=== PATIENT | female | born 1985 | race Caucasian/White ===

== ENCOUNTER 2021-03-20 05:01 | Inpatient (IN) | payer OTHER, SELFPAY ==
[2021-03-20] VITALS (143 sets, daily range): BP systolic 88–135; BP diastolic 46–93; PULSE 66–176; RESP 16–20; TEMP 36.3–37.7; O2SAT 87–100; BMI 30.9
--- NOTE | 2021-03-20 05:24 | LDADM ---
This patient, Gwen Gan, was admitted to Labor/Delivery/Recovery 106 on 03/20/21 at 05:01. Plans for labor, pain management and were discussed with patient. Patient/family oriented to hospital policies and general routines including ID bracelet, bed and alarms, visiting hours, pain management, procedures, bathroom and other care routines, personal items, smoking policy, room service/diet and guest tray routines, infant security routines, and visiting hours. Patient/Family are encouraged to report perceived risks to care and to ask questions if they do not understand what they are told or what they should do. See OBIX for further documentation.
[2021-03-20] MEDS: LACTATED RINGERS 1,000 ML 125 ML IV CONT (05:40)
[2021-03-20] MEDS: OXYTOCIN 30 UNITS/NS 500 ML 30 UNITS/500 ML BAG IV CONT (05:41)
[2021-03-20 05:45] LABS: Basophils Percent Auto 0.3 % (0.2-1.2); Eosinophils Absolute Auto 0.1 K/mm3 (0-0.3); Eosinophils Percent Auto 1.8 % (0-4.4); Hematocrit 34.1 % (37.0-47.0); Hemoglobin 11.6 g/dL (12.0-15.0); Immature Granulocyte Absolute 0.05 K/mm3 (0.00-0.031); Immature Granulocyte Percent A 0.6 % (0-0.5); Lymphocytes Absolute Auto 2.28 K/mm3 (0.9-3.2); Lymphocytes Percent Auto 28.7 % (18.3-44.2); Mean Corpuscular Hemoglobin 31.4 pg (26-34); Mean Corpuscular Volume 92.4 fl (80-100); Mean Platelet Volume 10.6 fl (7.4-10.4); Monocytes Absolute Auto 0.4 K/mm3 (0.1-0.6); Monocytes Percent Auto 5.3 % (2.6-8.5); Neutrophils Percent Auto 63.3 % (45.5-73.1); Platelet Count Result 343 k/mm3 (150-375); Red Blood Count 3.69 M/mm3 (4.2-5.4); Red Cell Distribution Width 12.7 % (11.5-14.5); White Blood Count 7.9 K/mm3 (4.5-10.0)
[2021-03-20 06:10] LABS: Alanine Aminotransferase 12 U/L (4-35); Albumin Level 3.7 g/dL (3.5-5.1); Alkaline Phosphatase 121 U/L (38-126); Anion Gap 8 mmol/L (8-16); Aspartate Amino Transferase 22 U/L (14-36); Bilirubin,Total 0.3 mg/dL (0.2-1.3); Blood Urea Nitrogen 11 mg/dL (7-17); Calcium 9.4 mg/dL (8.4-10.2); Carbon Dioxide 19 mmol/L (22-30); Chloride 107 mmol/L (98-107); Estimated CRCL calculation 98 ml/min; Estimated Glomerular Filt Rate > 60; Glucose 88 mg/dL (65-110); Potassium 3.8 mmol/L (3.4-5.0); Sodium 134 mmol/L (137-145)
--- NOTE | 2021-03-20 07:04 | PM.IMHP ---
H&P: HPI History of Present Illness Date/Time: 03/20/21 07:04 36-year-old 2 para 1 whose last menstrual period was 06/16/2020/ EDC is 03/31/2021, confirmed by 9 week ultrasound presents at 38 half weeks gestation for induction of labor. She had mildly elevated blood pressure with mild proteinuria and low grade headache. PIH labs were normal however cervix is favorable with good dates she is admitted for induction of labor. She is negative for group B strep Chief Complaint: gestational hypertension at 38 half weeks Review of Systems Review of Systems: All systems reviewed & are unremarkable except as noted in HPI and below PMFSH Family History Family History Grandparent Cerebrovascular accident Diabetes mellitus Social History Social History Smoking status: Former smoker Tobacco type: cigarettes Second hand tobacco smoke exposure: No Substance use: never Spiritual care concerns: No Meds Home Medications and Allergies Home Medications Medication Instructions Recorded Confirmed Type PNV cmb#95-ferrous fumarate-FA 1 tablet PO DAILY 03/05/21 03/05/21 History [] Allergies Allergy/AdvReac Type Severity Reaction Status Date / Time No Known Allergies Allergy Unverified 06/01/18 13:06 Vital Signs Vital Signs - 24 hr 03/20/21 05:31 03/20/21 05:36 03/20/21 06:01 Temperature 98.8 F Pulse Rate 95 88 Respiratory Rate 20 Blood Pressure 111/74 116/78 03/20/21 06:21 03/20/21 06:31 03/20/21 07:01 Temperature 98.8 F Pulse Rate 97 81 Respiratory Rate 20 Blood Pressure 109/70 129/84 Exam Const: General: no acute distress Eyes: General: appearance normal, both eyes and all related structures Neck: Neck: supple and no JVD Thyroid: thyroid normal Resp: Effort & Inspection: normal respiratory effort Auscultation: clear to auscultation bilaterally Cardio: Rate: regular rate Rhythm: regular rhythm GI: Inspection: non-distended GI Palp: Yes Soft to palpation, No Tenderness to palpation present (GI) and No Guarding due to palpation present (GI) Auscultation: normal bowel sounds : External Female Exam: normal external appearance Speculum Exam - Vagina: normal appearance of the vagina Speculum Exam - Cervix: Cervical os closed ( cervix 3/75/1. AROM clear. FHTs reassuring) Bimanual exam- vagina & uterus: non-tender Skin: General skin exam: no rashes or lesions noted Extrem: General: normal to inspection and no edema Psych: Mental Status: mental status grossly normal Affect: normal affect H&P: Results Labs Labs: Short CBC 03/20/21 Range/Units 05:34 WBC 7.9 (4.5-10.0) K/mm3 Hgb 11.6 L (12.0-15.0) g/dL Hct 34.1 L (37.0-47.0) % Plt Count 343 (150-375) k/mm3 BMP 03/20/21 05:34 Sodium 134 L Potassium 3.8 Chloride 107 Carbon Dioxide 19 L BUN 11 Creatinine 0.60 L Glucose 88 Calcium 9.4 Liver Function 03/20/21 Range/Units 05:34 Total Bilirubin 0.3 (0.2-1.3) mg/dL AST 22 (14-36) U/L ALT 12 (4-35) U/L Alkaline Phosphatase 121 (38-126) U/L Albumin 3.7 (3.5-5.1) g/dL Assessment and Plan Additional Plan impression: 38 half weeks with elevated blood pressures Plan: Medical induction of labor. Spontaneous vaginal delivery is expected. She has an epidural candidate
[2021-03-20] MEDS: fentaNYL CITRATE INJ (*CRX) 100 MCG/2 ML VIAL 50 MCG IV PUSH (07:07)
[2021-03-20] MEDS: ONDANSETRON INJ 4 MG/2 ML VIAL IV PUSH (09:45)
[2021-03-20 11:37] LABS: Rapid Plasma Reagin Non-Reactive (NonReactive)
--- NOTE | 2021-03-20 14:14 | PM.OBPRVD ---
OB - Delivery Note Procedure Delivery date: 03/20/21 Procedure: mil events: Labor Induction Intrapartal events: None Induction method: AROM Delivery augmentation: pitocin Delivery monitor: external FHT Route of delivery: Episiotomy description: None Laceration Description: None Specimen: No Quantitative Blood Loss (ml): 58 Anesthesia type: Epidural Disposition: floor [place] [facility] Date of : 03/20/21 Time of : 14:07 Weeks of gestation at delivery: 38 gender: Female presentation: vertex position: Right Occiput Anterior Placenta delivery description: Spontaneous cord vessel description: 3 Vessels and Clamped/Cut score one minute: 9 score five minutes: 9
[2021-03-20] MEDS: OXYTOCIN 30 UNITS/NS 500 ML 30 UNITS/500 ML BAG 125 UNITS IV CONT (14:48)
[2021-03-20] MEDS: IBUPROFEN 600 MG TABLET PO (16:50)
--- NOTE | 2021-03-20 18:09 | OBPPTRN ---
1655 Patient transferred to post room #284 via W/C. Support person present. Oriented to unit, room, information board, rooming in, admission packet and security measures. Patient verbalizes understanding.
[2021-03-20] MEDS: ACETAMINOPHEN 325 MG TABLET 650 MG PO (20:29)
[2021-03-21 04:00] VITALS: BP 117/77; PULSE 80; RESP 16; TEMP 36.6; O2SAT 100
[2021-03-21] MEDS: IBUPROFEN 600 MG TABLET PO ×2 (04:04→14:35)
[2021-03-21 05:40] LABS: Hematocrit 28.3 % (37.0-47.0); Hemoglobin 9.3 g/dL (12.0-15.0)
--- NOTE | 2021-03-21 06:54 | P.PNOB_ITS ---
OB - PN: Subj Subjective Date/time seen: 03/21/21 06:54 Patient comments: no complaints and pain well controlled baby status: doing well and nursing well OB - PN: Obj Data Labs CBC & Chem 7: 03/21/21 04:10 03/20/21 05:34 Labs: Laboratory Results - last 24 hr 03/20/21 03/20/21 03/21/21 05:34 05:34 04:10 Hgb 9.3 L Hct 28.3 L RPR Non-reactive Blood Type A Positive Antibody Screen Negative OB - PN A/P Plan day: 1 Plan: routine care Time Spent With Patient Time: Total time spent is greater than 50% in coordination of care (as doc umented) at patient's floor/unit and/or counseling patient: Time with patient: less than 15 minutes Review of Systems Review of Systems: All systems reviewed & are unremarkable except as noted in HPI and below Exam Const: General: no acute distress Eyes: General: appearance normal, both eyes and all related structures Neck: Neck: supple and no JVD Thyroid: thyroid normal Resp: Effort & Inspection: normal respiratory effort Auscultation: clear to auscultation bilaterally Cardio: Rate: regular rate Rhythm: regular rhythm GI: Inspection: non-distended GI Palp: Yes Soft to palpation, No Tenderness to palpation present (GI) and No Guarding due to palpation present (GI) Auscultation: normal bowel sounds : General: Yes bladder normal to palpation External Female Exam: normal external appearance Speculum Exam - Vagina: normal vaginal discharge and No vaginal bleeding Speculum Exam - Cervix: nontender Bimanual exam- vagina & uterus: bladder normal to palpation and No Cervical tenderness present OB/external & speculum: No vaginal bleeding Skin: General skin exam: no rashes or lesions noted Extrem: General: normal to inspection and no edema Psych: Mental Status: mental status grossly normal Affect: normal affect
--- NOTE | 2021-03-21 06:57 | PM.DS ---
DS: Admitting Diagnosis Discharge Date Admitting Diagnosis gestational hypertension at 38.5 weeks gestation DS: Summary Hospital Course Hospital Course: the patient was admitted for induction of labor at 38.5 weeks gestation with elevated blood pressures. She underwent unremarkable spontaneous vaginal delivery and her pressures normalized . She was up, voiding without difficulty, ambulating, generally without complaints Time Spent with Patient Time attestation: Total time spent providing and/or coordinating discharge services: Exam Const: General: no acute distress Eyes: General: appearance normal, both eyes and all related structures Neck: Neck: supple and no JVD Thyroid: thyroid normal Resp: Effort & Inspection: normal respiratory effort Auscultation: clear to auscultation bilaterally Cardio: Rate: regular rate Rhythm: regular rhythm GI: Inspection: non-distended GI Palp: Yes Soft to palpation, No Tenderness to palpation present (GI) and No Guarding due to palpation present (GI) Auscultation: normal bowel sounds : General: Yes bladder normal to palpation External Female Exam: normal external appearance Speculum Exam - Vagina: normal vaginal discharge and No vaginal bleeding Speculum Exam - Cervix: nontender Bimanual exam- vagina & uterus: bladder normal to palpation and No Cervical tenderness present OB/external & speculum: No vaginal bleeding Skin: General skin exam: no rashes or lesions noted Extrem: General: normal to inspection and no edema Psych: Mental Status: mental status grossly normal Affect: normal affect DS: Data Data Completed and Pending Labs on day of discharge: Labs from last 24 hours 03/21/21 03/20/21 03/20/21 04:10 05:34 05:34 Hgb 9.3 L Hct 28.3 L RPR Non-reactive Blood Type A Positive Antibody Screen Negative Discharge Plan Discharge Attending physician on discharge: Jorge Luis Camejo Discharging Clinician: Jorge Luis Camejo Patient Disposition: Home, Self-Care Activity: may shower, no straining and pelvic rest Diet: heart healthy Wound Care Instructions: follow printed instructions Patient Instructions: Antibiotic Form Stand Alone Forms: General Discharge Information Follow-up/Referrals: Jorge Luis Camejo MD [Physician] - Discharge Medications: Continued PNV cmb#95-ferrous fumarate-FA [] 28 mg iron- 800 mcg Tablet 1 tablet PO DAILY RF: 0 Date of admission: 03/20/21 05:01 Primary Care Provider: PHYSICIAN,FIELD MARKETER Admitting Provider: Jorge Luis Camejo Attending physician on admission: Jorge Luis Camejo Condition: Stable
[2021-03-21 07:40] VITALS: BP 115/72; PULSE 79; RESP 18; TEMP 36.6; O2SAT 99
--- NOTE | 2021-03-21 08:07 | WPDANLDPN2 ---
Anes-Prog Note L&D Date/Time: 03/21/21 08:07 Comfortable throughout: labor and delivery Neuraxial method: epidural Epidural/Spinal procedure site: clean & non-tender Neuro status: Neuro function grossly intact. Cardiovascular status: normal Respiratory status: normal Airway patency: baseline Mental status: baseline Post-Op hydration status: normal Vital Signs: Last Vital Signs Temp 36.6 C 03/21/21 04:00 Pulse 80 03/21/21 04:00 Resp 16 03/21/21 04:00 BP 117/77 03/21/21 04:00 Pulse Ox 100 03/21/21 04:00 Pain score (VAS): 3 I/O: Intake & Output 03/20/21 03/21/21 03/21/21 23:59 07:59 15:59 Intake Total 500 Output Total 444 600 Balance -444 -100 Post-procedural complaints: none Patient feedback: Patient satisfied with anesthetic care.
[2021-03-21] MEDS: MULTIVIT/MIN/PREN/FOL AC/IRON TABLET 1 TAB PO (08:35)
[2021-03-21] MEDS: POLYSACCHARIDE IRON COMPLEX 150 MG CAPSULE PO ×2 (08:35→14:35)
[2021-03-21] MEDS: DOCUSATE SODIUM 100 MG CAPSULE PO ×2 (08:35→14:35)
[2021-03-21] MEDS: ACETAMINOPHEN 325 MG TABLET 650 MG PO (08:35)
--- NOTE | 2021-03-21 12:48 | PC.NURSE ---
0981 Patient viewed the discharge video Mother & Baby Care, The First Two Weeks . Patient was given the opportunity and encouraged to ask questions. Patient verbalized understanding of information shared and has been given the mother/baby guide for home reference.
--- NOTE | 2021-03-21 13:20 | PC.NURSE ---
Consult with pt., mother reports is eagerly feeding with slight tenderness. This is mother?s 2nd child to breastfeed. Mother reports pain and bruising with first child for first weeks of . Requested mother call out next feeding for observation per policy. Reviewed infant feeding cues, frequencies, duration of feedings, feeding elimination flow sheet, and signs of adequate intake. Demonstrated stimulation techniques to wake infant for feeding. Reviewed signs of a correct latch, effective nursing and suck swallow ratio. Nipple care reviewed of lanolin after feedings and warm compresses as needed. Requested mother to call out for RN/LC assistance next feeding to assess latch due reported nipple tenderness. Instructed feeding should be initiated three hours from start of last feeding or if feeding cues are noted before. Mother voiced understanding of information shared.
--- NOTE | 2021-03-21 14:25 | PC.NURSE ---
Mother called out for assist with feeding. is able to freely thrust tongue past gum ridge and flange both lips. Skin is intact on both nipples, redness and slight bruising noted. Nipple care reviewed of lanolin after feedings, warm compresses as needed. Reviewed feeding cues, frequencies, duration of feedings, feeding elimination flow sheet, and signs of adequate intake. Demonstrated stimulation techniques to wake for feeding, several minutes of stimulation to wake for feeding cues noted. Assisted with to breast. Reviewed positioning/alignment in cross cradle, holding breast in ?U? hold and guided asymmetrical latch on. Reviewed rational for each. Several attempts before able to latch correctly. nursed sleepily needing constant stimulation to keep awake and nursing. nursed eagerly with steady draws and occasional swallowing noted for short bursts followed with long pausing. Reviewed signs of a correct latch, effective nursing and suck swallow ratio. Advised to mother stimulate while feeding to increase stimulation for milk supply, for increased intake and to assist with maintaining deep latch. Infant would slip to shallow latch causing tenderness. Demonstrated how to adjust latch more deeply while feeding as needed. Mother reports she can feel the difference in latch with less tenderness. Instructed mother to call out for RN assistance if she is unable to latch infant for feeding or she has discomfort with nursing. Instructed feeding should be initiated three hours from start of last feeding or if feeding cues are noted before. Mother voiced understanding of information shared. Mother reports she plans on discharge later this day. Reviewed required output and reviewed feeding/elimination flowsheet. Advised to supplement if infant does not have required output or feeding every three hours with effective feeding. Advised to begin pumping to stimulate milk supply and offer EBM if requires supplement. Mother is feeding as required and waking infant to feed if needed. Infant is feeding as required in the past 24 hours, and is currently meeting outcomes for weight, output, jaundice and feeding frequencies. Mother states she feels confident to continue effective at home, and will initiate supplementation if required. Reviewed transition to breast milk, signs of adequate intake, and engorgement/relief. Instructed to call ICP if intake/output less than required. Reviewed regular medications mother is taking. Information provided per Jaycee. Reviewed community resources on the [facility] website and in the Mom/Baby guide. Information on outpatient services provided. Mother has no further questions at this time.
[2021-03-21 14:35] VITALS: BP 111/70; PULSE 83; RESP 16; TEMP 36.5; O2SAT 98
[2021-03-21] MEDS: TETANUS,DIPHTHERIA,AC PERTUSSIS ADULT (0.5 ML) BOOSTRIX IM (16:42)
[2021-03-23 12:24] VITALS: BP 121/80; PULSE 83; RESP 16; TEMP 36.8; O2SAT 100
== END 2021-03-21 19:30 | disposition home or self-care (01) | DRG 560 ==
LOC: ANHLDR 05:05 → ANHOB2 17:09
PROVIDERS: Admitting Provider Obstetrics & Gynecology; Visit Provider Obstetrics & Gynecology
DX: O13.4 Gestational [pregnancy-induced] hypertension without significant proteinuria, complicating childbirth (principal); Z3A.38 38 weeks gestation of pregnancy; Z37.0 Single live birth; Z23 Encounter for immunization; Z87.891 Personal history of nicotine dependence
CPT/HCPCS: 36415; 80053; 84550; 85014; 85018; 85025; 86592; 86850; 86900; 86901; 90471; 90653; 90715; A9270; G0008; J2405; J2590; J3010; J7120

== ENCOUNTER 2022-02-08 01:24 | Day surgery (SDC) | payer OTHER, SELFPAY ==
[2022-01-29 15:10] VITALS: BMI 25.7
--- NOTE | 2022-01-29 15:21 | PC.NURSE ---
Report to the Outpatient Waiting Room, entrance under the green pavilion located off [facility], at time 1130 on date 02/08/22. OR Time: 1330. Time changes happen often and if your time is changed the preop area will call you the afternoon before. - You and your visitor will be asked to self-screen and do not enter if you have any COVID symptoms. - Only one visitor and NO children visitors are allowed at this time. - The patient visitor is requested to leave or wait in car when not with patient due to restrictions. - A mask is required within the hospital. Patients may have clear liquids (water, carbonated beverages, clear teas, apple juice) until 3 hours prior to surgery with a maximum of 20 ounces. - No food from midnight until time of surgery. Take the following medications with a SIP of water the morning of surgery: N/A Medications to discontinue per physician N/A Date to take last dose N/A Please no make-up, nail frisian, hairspray, perfume, deodorant, or body powder the day of surgery. No jewelry (including any body piercings) or valuables the day of surgery, leave them at home. Please take a shower or bath the night before, or the morning of, surgery with an antibacterial soap. Wear comfortable, loose fitting clothing. - Jewelry must be removed prior to entering the operating room. Rings and piercings that are not removed may be cut off. - The hospital will not accept responsibility for valuables. - Please leave all valuables, including medications, at home the day of surgery. If you are going home after surgery, a licensed pick up driver must drive you home. - NO public transportation without another adult. - We recommend that an adult stay with you for 24 hours following discharge. - We also recommend that you do not drive, make important decision, drink alcoholic beverages, or take any drugs that were not prescribed by your health care provider for at least 24 hours after your discharge time. Follow any additional instructions given to you from your surgeon. If you or anyone in your household have experienced Covid symptoms in the past week, please notify your surgeon or the nurse liaison at the phone number below for possible testing. Telephone instructions given to patient and asked if any additional questions and then verbalized understanding. Patient advised to call surgeon office or pre surgery nurse liaison [phone] if any additional questions.
--- NOTE | 2022-02-04 12:19 | PM.IMHP ---
H&P: HPI History of Present Illness Date/Time: 02/04/22 12:19 Chief Complaint: Desires permanent sterilization Narrative: This is a 37-year-old multiparous patient who desires permanent and irreversible sterilization. She was offered alternatives including but not exclusive of pills, patches, injections, long-acting control. She understands this to be permanent and irreversible with a failure rate of 06/999. Risks and benefits of the procedure were also reviewed PMFSH Family History Family History Grandparent Cerebrovascular accident Diabetes mellitus Social History Social History Smoking packs per day: 0.5 Smoking cigarettes per day: 10.0 Years smoked: 10 Smoking pack-years: 5.00 Smoking status: Former smoker Tobacco type: cigarettes Second hand tobacco smoke exposure: No Smoking end date: 01/29/11 Alcohol intake: never Substance use: never Living arrangements: with family Spiritual care concerns: No Meds Home Medications and Allergies Home Medications Medication Instructions Recorded Confirmed Type No Home Medications 01/29/22 01/29/22 History Allergies Allergy/AdvReac Type Severity Reaction Status Date / Time No Known Allergies Allergy Unverified 01/29/22 15:09 Exam Const: General: cooperative, healthy appearing, comfortable and well groomed Nutritional Appearance: average body habitus Orientation/consciousness: oriented to person, oriented to place and oriented to time HENMT: Head: normal to inspection Neck: Neck: normal visual inspection Resp: Effort & Inspection: normal respiratory effort Cardio: Rate: regular rate Rhythm: regular rhythm Heart sounds: S1 normal heart sound present and S2 normal heart sound present GI: Inspection: normal to inspection Auscultation: normal bowel sounds : External Female Exam: normal external appearance Speculum Exam - Vagina: normal appearance of the vagina Speculum Exam - Cervix: normal appearance of the cervix Bimanual exam- vagina & uterus: non-tender Bimanual Exam- Adnexa, other: normal adnexae Assessment and Plan Assessment and plan (1) Sterilization: Code(s): Z30.2 - Encounter for sterilization Status: Acute Plan Laparoscopic bilateral tubal ligation via rings
[2022-02-08] VITALS (10 sets, daily range): BP systolic 107–120; BP diastolic 61–81; PULSE 70–93; RESP 12–16; TEMP 36.3–37; O2SAT 97–100
--- NOTE | 2022-02-08 06:31 | WPDHPUPDATE1 ---
History and Physical Update Update Date/Time: 02/08/22 06:31 History and Physical has been reviewed, including an updated exam of the patient. There are NO changes in the patient's condition. Risks, benefits, and alternatives have been discussed and questions answered. Patient agrees to proceed with procedure.
[2022-02-08] MEDS: ACETAMINOPHEN 500 MG TABLET 1000 MG PO (12:09)
[2022-02-08] MEDS: LACTATED RINGERS 1,000 ML 30 ML IV CONT ×2 (12:16→14:45)
[2022-02-08] MEDS: KETOROLAC 15 MG/ML VIAL (*BKC) IV PUSH (12:22)
--- NOTE | 2022-02-08 12:47 | WPDANESEPPF ---
Anes - Initial Pre Proc Eval Procedure: Operation Date: 02/08/22 13:30 Proposed Procedures p Laparoscopic Bilateral Tubal Sterilization with Fallopian Rings - Jorge Luis Laurent MD Date/Time: 02/08/22 12:47 Surgeon: Jorge Luis Laurent MD Pre Op Diagnosis: sterilization Patient Data Age: 37 Gender: F Height: 1.52 m Weight: 59.4 kg Last Vital Signs Temp 36.3 C L 02/08/22 11:48 Pulse 73 02/08/22 11:48 Resp 16 02/08/22 11:48 BP 111/62 02/08/22 11:48 Pulse Ox 100 02/08/22 11:48 O2 Del Method Room Air 02/08/22 11:48 Allergies Allergy/AdvReac Type Severity Reaction Status Date / Time No Known Allergies Allergy Unverified 02/08/22 12:06 Home Medications Medication Instructions Recorded Confirmed Type hydrocodone 5 mg-acetaminophen 325 1 tablet PO Q4H PRN pain #20 tabs 02/08/22 Rx mg tablet Patient hx anesthesia problems: none Family hx anesthesia problems: none Results Review: All pre-operative results and documents have been reviewed as part of the pre-operative evaluation. [facility] Surgical History Surgical History (Updated 02/08/22 @ 12:47 by Jorge Luis Marks MD) H/O sinus surgery Family History Family History Grandparent Cerebrovascular accident Diabetes mellitus Social History Social History Smoking packs per day: 0.5 Smoking cigarettes per day: 10.0 Years smoked: 10 Smoking pack-years: 5.00 Smoking status: Former smoker Tobacco type: cigarettes Second hand tobacco smoke exposure: No Smoking end date: 01/29/11 Alcohol intake: never Substance use: never Living arrangements: with family Spiritual care concerns: No Anes - Eval Final PreProcedure Day of Procedure 02/08/22 12:47 Patient weight: normal Heart: regular rate and rhythm Lungs: clear to auscultation Airway: Mallampati scale class II Neurological: alert and oriented Last oral intake: >/= 8 hours ASA classification: I Emergent: no Anesthetic plan: proceed Anesthesia type and monitoring: general ETT and standard monitoring Results Review: All pre-operative results and documents have been reviewed as part of the pre-operative evaluation. Informed Consent: The patient's anesthetic plan and its attendant risks and benefits were discussed with the patient/family/POA. Questions were solicited and answers provided to the satisfaction of the patient/family/POA.
--- NOTE | 2022-02-08 13:52 | W.PM.PROC2 ---
Procedure Note - Detailed Date of Procedure 02/08/22 Pre-op Diagnosis sterilization Post-op Diagnosis Same Procedure Performed Laparoscopic tubal ligation bilateral via rings Surgeon Jorge Luis Laurent MD Anesthesia General Indications safe 37-year-old multiparous patient who desires permanent irreversible sterilization Findings normal-appearing ovaries tubes and uterus normal-appearing gallbladder and liver edge Description of Procedure the patient was prepped draped in the normal sterile fashion placed in the dorsal lithotomy position. Under excellent general trach anesthesia weighted speculum placed in posterior fornix vagina. Anterior lip of the cervix grasped with single-tooth tenaculum and the Pacheco's cannula inserted to the cervix. This was attached to the single-tooth to be used later for uterine manipulation. The bladder was emptied of clear urine in the weighted speculum was removed An infraumbilical incision made in the Veress needle passed in the abdomen. Abdomen filled with CO2 gas [id number]. The 5mm trocar advanced under direct visualization with the [employer] you and no injury seen. Gas reattached in the patient placed in Trendelenburg. A suprapubic incision made the 8mm trocar advanced under direct visualization assuring no injury. The ovaries tubes and uterus appeared within normal limits. The right fallopian tube was then grasped at the midportion and a good knuckle of tube formed with excellent blanching. In like fashion the left fallopian tube was grasped at the midportion a good knuckle of tube formed an excellent blanching seen. No other abnormalities wrist seen. The gallbladder and liver edge appeared within normal limits and photo documentation was undertaken. The gas removed from the abdomen and the trocars removed. The incisions closed with 4 O Monocryl and glue and the instruments removed from the vagina . The patient was awakened and went to recovery in satisfactory condition. All sponge count and needle, instrument counts were correct. Implants Bilateral silastic rings Estimated Blood Loss 5 Drains No Packing No Pathology None sent Complications No immediate complications Condition Stable Disposition PACU
[2022-02-08] MEDS: fentaNYL CITRATE INJ (*CRX) 100 MCG/2 ML VIAL 25 MCG IV PUSH ×8 (14:10→14:33)
[2022-02-08] MEDS: HYDROmorphone HCL INJ (*CRX) 1 MG/ML SYR 0.5 MG IV PUSH ×4 (14:41→15:00)
[2022-02-08] MEDS: oxyCODONE HCL (*CRX) 5 MG TAB IR PO (15:53)
[2022-02-08] MEDS: ONDANSETRON INJ 4 MG/2 ML VIAL IV PUSH (16:08)
== END 2022-02-08 16:40 | disposition home or self-care (01) ==
PROVIDERS: Visit Provider Obstetrics & Gynecology
PROC: (CPT 58671; principal; 2022-02-08 13:30)
DX: Z30.2 Encounter for sterilization (principal); Z87.891 Personal history of nicotine dependence
CPT/HCPCS: 58671; A4264; A9270; J0330; J1100; J1170; J1885; J2250; J2405; J2704; J3010; J7120